=== PATIENT | female | born 1990 | race Caucasian/White ===

== ENCOUNTER 2017-12-18 22:14 | Emergency (ER) | payer OTHER ==
[~2017-12-18] VITALS: Ht 170.2 cm; Wt 77.1 kg
[2017-12-18 22:27] VITALS: Ht 170.2 cm; Wt 77.1 kg
[2017-12-19 00:22] VITALS: BP 110/65
== END 2017-12-19 00:10 | disposition home or self-care (01) ==
LOC: ED 22:14
DX: N83.201 Unspecified ovarian cyst, right side (principal); N89.8 Other specified noninflammatory disorders of vagina
CPT/HCPCS: J1885